=== PATIENT | female | born 1995 | race Caucasian/White ===

== ENCOUNTER 2017-07-23 14:29 | Emergency (ER) | payer OTHER ==
--- NOTE | 2017-07-23 15:14 | ER Document Report ---
ED Medical Screen (RME) <WENDIE WHITAKER - Last Filed: 07/23/17 18:09> - General Mode of Arrival: Ambulatory Information source: Patient TRAVEL OUTSIDE OF THE [place] IN LAST 30 DAYS: No - HPI Onset: Just prior to arrival Onset/Duration: Sudden Quality of pain: No pain Severity: None Pain Level: Denies Associated Symptoms: denies: Chills, Fever, Shortness of breath Exacerbated by: Denies Relieved by: Denies Similar symptoms previously: No Recently seen / treated by doctor: No - Related Data Smoking: Non-smoker Frequency of alcohol use: None Drug Abuse: None <CASS OLIVA - Last Filed: 07/23/17 20:50> - General Chief Complaint: Passed Out Prior to Arrival Stated Complaint: HEAD INJURY Time Seen by Provider: 07/23/17 15:13 Notes: 21-year-old female who presents to the emergency room after fainting at the bathroom at work. Patient states she awoke this morning and felt "under the weather". She states she felt a little nauseated and had some abdominal cramping. She ate a small part of an apple and went to work. At approximately 1130 today, she states she went to the bathroom because she was feeling nauseated and while she was in the bathroom she fainted and hit the back of her head. She presents to the emergency room with a friend. At this time, she denies any significant headache. She was not nauseated initially. She denies any chest pain or shortness of breath. Her last normal menstrual period was approximately 3 weeks ago. She denies any significant abdominal pain. (CASS OLIVA) - Related Data Allergies/Adverse Reactions: amoxicillin Allergy (Verified 07/23/17 14:32) Past Medical History - General Information source: Patient - Social History Cigarette use (# per day): No Chew tobacco use (# tins/day): No Frequency of alcohol use: None Drug Abuse: None Lives with: Family Family history: None - Medical History Medical History: Negative Surgical Hx: Negative - Immunizations Immunizations up to date: Yes Hx Diphtheria, Pertussis, Tetanus Vaccination: - unknown <CASS OLIVA - Last Filed: 07/23/17 20:50> Review of Systems - Review of Systems Constitutional: denies: Chills, Fever EENT: No symptoms reported Cardiovascular: No symptoms reported Respiratory: No symptoms reported Gastrointestinal: See HPI Genitourinary: No symptoms reported Female Genitourinary: No symptoms reported Musculoskeletal: No symptoms reported Skin: No symptoms reported Hematologic/Lymphatic: No symptoms reported Neurological/Psychological: See HPI <CASS OLIVA - Last Filed: 07/23/17 20:50> Physical Exam <AAYUSHLISETTEWENDIE MURPHY - Last Filed: 07/23/17 18:09> <CASS OLIVA - Last Filed: 07/23/17 20:50> - Vital signs Vitals: Temp Pulse Resp BP Pulse Ox 98.0 F 94 H 16 140/76 H 100 07/23/17 14:36 07/23/17 14:36 07/23/17 14:36 07/23/17 14:36 07/23/17 14:36 Notes: Physical exam: GENERAL: 21-year-old female, alert and oriented 3, no acute distress HEAD: Atraumatic, normocephalic. EYES: Pupils equal round and reactive to light, extraocular movements intact, sclera anicteric, conjunctiva are normal. ENT: TMs normal, nares patent, oropharynx clear without exudates. Moist mucous membranes. NECK: Normal range of motion, supple without obvious mass or JVD. LUNGS: Breath sounds clear to auscultation bilaterally and equal. No wheezes rales or rhonchi. HEART: Regular rate and rhythm without murmurs, rubs or gallops. ABDOMEN: Soft, normoactive bowel sounds. No tenderness to palpation. No guarding, no rebound. No masses appreciated. EXTREMITIES: Normal range of motion, no pitting or edema. No clubbing or cyanosis. NEUROLOGICAL: Cranial nerves II through XII grossly intact. Normal speech, motor 5/5, sensory grossly intact, cerebellar (finger to nose) excellent, Romberg negative, gait normal, reflexes symmetrical and brisk. PSYCH: Normal mood, normal affect. SKIN: Warm, Dry, normal turgor, no rashes or lesions noted. (CASS OLIVA) Course - Laboratory Result Diagrams: 07/23/17 16:25 07/23/17 16:25 <WENDIE WHITAKER - Last Filed: 07/23/17 18:09> - Laboratory Result Diagrams: 07/23/17 16:25 07/23/17 16:25 <CASS OLIVA - Last Filed: 07/23/17 20:50> - Re-evaluation Re-evalutation: 07/23/17 18:20 I discussed the labs with the patient, specifically the white count which is mildly elevated as well as the urine analysis which has some white cells. The patient does not have any symptoms of UTI. I have offered her antibiotics but she would prefer to wait for the urine culture. On reassessment of her abdomen , her abdomen is soft and nontender and she states she feels much better. She did have a vasovagal episode during the blood work and had vomited in triage. She was given IV fluids. She is now asymptomatic. (CASS OLIVA) - Vital Signs Vital signs: Temp Pulse Resp BP Pulse Ox 99.3 F 97 H 18 119/71 99 07/23/17 18:31 07/23/17 18:31 07/23/17 18:31 07/23/17 18:31 07/23/17 18:31 - Laboratory Laboratory results interpreted by me: 07/23/17 07/23/17 07/23/17 16:25 16:25 17:04 WBC 14.6 H Seg Neuts % (Manual) 91 H Lymphocytes % (Manual) 2 L Abs Neuts (Manual) 13.9 H Abs Lymphs (Manual) 0.3 L Sodium 136.8 L Urine Blood SMALL H Ur Leukocyte Esterase TRACE H Doctor's Discharge <WENDIE WHITAKER - Last Filed: 07/23/17 18:09> <CASS OLIVA - Last Filed: 07/23/17 20:50> - Discharge Clinical Impression: Vasovagal episode, Contusion head Condition: Stable Disposition: HOME, SELF-CARE Instructions: Vasovagal Symptoms ([facility]) Additional Instructions: As we discussed, your white count was slightly elevated and this can sometimes go up with infection. There was some white cells in the urine and you might be developing a urine infection. I sent a urine culture and that will be back in 2 days. If you start getting lower abdominal discomfort or burning when you urinate for any sensation that you may be developing a UTI, return to the emergency room for reassessment. Return to the ER for recurrent headaches, recurrent vomiting or abdominal pain moving to the right lower side. Take it easy over the next 2 days. Follow-up with the primary care doctor in the next 3-5 days. Forms: Return to Work
[2017-07-23] MEDS ORDERED: RINGERS SOLUTION,LACTATED 1,000 ML IV ONE (16:39)
[2017-07-23] MEDS ORDERED: ONDANSETRON HCL INJ/PF 4 MG/2 ML SDV IV ONE (16:39)
[2017-07-23 17:02] LABS: HEMATOCRIT 41.1 % (36.0-47.0); HEMOGLOBIN 13.9 g/dL (12.0-15.5); MEAN CORPUSCULAR HEMOGLOBIN 29.4 pg (27.0-33.4); MEAN CORPUSCULAR HGB CONC 33.8 g/dL (32.0-36.0); MEAN CORPUSCULAR VOLUME 87 fl (80-97); PLATELET COUNT 363 10^3/uL (150-450); RED BLOOD COUNT 4.72 10^6/uL (3.72-5.28); RED CELL DISTRIBUTION WIDTH 12.3 % (11.5-14.0); WHITE BLOOD COUNT 14.6 10^3/uL (4.0-10.5)
[2017-07-23 17:19] LABS: APPEARANCE,URINE SLIGHTLY-CLOUDY; BILIRUBIN,URINE NEGATIVE (NEGATIVE); COLOR,URINE YELLOW; GLUCOSE, URINE NEGATIVE (NEGATIVE); KETONES,URINE NEGATIVE (NEGATIVE); LEUKOCYTE ESTERASE,URINE TRACE (NEGATIVE); NITRITE,URINE NEGATIVE (NEGATIVE); PROTEIN,URINE NEGATIVE (NEGATIVE); URINE SPECIFIC GRAVITY 1.034; UROBILINOGEN,URINE NEGATIVE mg/dL (<2.0)
[2017-07-23 17:22] LABS: ALANINE AMINOTRANSFERASE 26 U/L (5-35); ALBUMIN 4.5 g/dL (3.7-5.6); ALKALINE PHOSPHATASE 84 U/L (50-135); ANION GAP 12 (5-19); ASPARTATE AMINO TRANSFERASE 22 U/L (5-30); BILIRUBIN,TOTAL 0.7 mg/dL (0.2-1.3); BLOOD UREA NITROGEN 15 mg/dL (7-20); CALCIUM 9.8 mg/dL (8.4-10.2); CARBON DIOXIDE 24 mmol/L (22-30); CHLORIDE 101 mmol/L (98-107); GLUCOSE 81 mg/dL (75-110); POTASSIUM 4.2 mmol/L (3.6-5.0); SODIUM 136.8 mmol/L (137-145); TOTAL PROTEIN 6.8 g/dL (6.3-8.2)
[2017-07-23 17:25] LABS: ABSOLUTE LYMPHOCYTES# (MANUAL) 0.3 10^3/uL (0.5-4.7); ABSOLUTE MONOCYTES # (MANUAL) 0.4 10^3/uL (0.1-1.4); ABSOLUTE NEUTROPHILS# (MANUAL) 13.9 10^3/uL (1.7-8.2); BAND NEUTROPHILS % (MANUAL) 4 % (3-5); BASOPHILS % (MANUAL) 0 % (0-2); EOSINOPHILS % (MANUAL) 0 % (0-6); LYMPHOCYTES % (MANUAL) 2 % (13-45); MONOCYTES % (MANUAL) 3 % (3-13); SEGMENTED NEUTROPHILS % (MAN) 91 % (42-78); TOTAL CELLS COUNTED 100
[2017-07-23 17:26] LABS: HYPOCHROMASIA SLIGHT; PLATELET COMMENT ADEQUATE
[2017-07-23 18:32] VITALS: BP 119/71
--- NOTE | 2017-07-23 22:01 | EKG REPORT ---
SEVERITY:- ABNORMAL ECG - SINUS TACHYCARDIA FIRST DEGREE AV BLOCK PROBABLE LEFT ATRIAL ABNORMALITY BORDERLINE T ABNORMALITIES, INFERIOR LEADS : Confirmed by: George Iraheta 23-Jul-2017 22:00:59
== END 2017-07-23 18:41 | disposition home or self-care (01) ==
LOC: ER 14:29
DX: R55 Syncope and collapse (principal); S00.93XA Contusion of unspecified part of head, initial encounter; W18.30XA Fall on same level, unspecified, initial encounter; Y92.9 Unspecified place or not applicable; Y99.0 Civilian activity done for income or pay; Z88.0 Allergy status to penicillin
CPT/HCPCS: 93005; 99284; 96361; 96374; 36415; 87086; 82962; 84702; 85025; 80053; 81001; 93010; J2405; J7120